=== PATIENT | female | born 1935 | race Caucasian/White ===

== ENCOUNTER 2022-05-10 22:42 | Emergency (ER) | payer MEDICARE, SELFPAY ==
[2022-05-10 22:45] VITALS: BP 152/75; PULSE 65; RESP 18; TEMP 36.8; O2SAT 98; BMI 23.7
--- NOTE | 2022-05-10 22:54 | CT_ITS ---
PROCEDURE INFORMATION: Exam: CT Head Without Contrast Exam date and time: 05/10/2022 11:17 PM Age: 87 years old Clinical indication: Injury or trauma; Fall; Blunt trauma (contusions or hematomas) TECHNIQUE: Imaging protocol: Computed tomography of the head without contrast. Radiation optimization: All CT scans at this facility use at least one of these dose optimization techniques: automated exposure control; mA and/or kV adjustment per patient size (includes targeted exams where dose is matched to clinical indication); or iterative reconstruction. COMPARISON: No relevant prior studies available. 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 No acute intracranial mass, hemorrhage or definite evidence of acute infarcts seen. Diffuse white matter hypodensity is compatible with chronic microvascular ischemic changes. Cerebral ventricles: There is significant generalized cerebral atrophy and associated ventriculomegaly. Paranasal sinuses: Visualized sinuses are unremarkable. No fluid levels. Mastoid air cells: Visualized mastoid air cells are well aerated. Bones/joints: Evidence of left facial fractures and blood in the left maxillary sinus partially visualized. Soft tissues: There is a small left frontal scalp hematoma. IMPRESSION: 1. No acute intracranial abnormality. Chronic findings of the brain as noted. 2. Left periorbital soft tissue swelling and partially visualized left facial fractures. Please see maxillofacial CT report from the same day for further details.
--- NOTE | 2022-05-10 22:54 | CT_ITS ---
PROCEDURE INFORMATION: Exam: CT Cervical Spine Without Contrast Exam date and time: 05/10/2022 11:17 PM Age: 87 years old Clinical indication: Injury or trauma; Fall; Blunt trauma TECHNIQUE: Imaging protocol: Computed tomography of the cervical spine without contrast. Radiation optimization: All CT scans at this facility use at least one of these dose optimization techniques: automated exposure control; mA and/or kV adjustment per patient size (includes targeted exams where dose is matched to clinical indication); or iterative reconstruction. COMPARISON: No relevant prior studies available. FINDINGS: Bones/joints: There is severe multilevel degenerative disc disease and facet arthropathy throughout the cervical spine. Facet arthropathy is most severe on the left at the C2-C3, C3-C4 and C4-C5 levels. Degenerative disc space narrowing and disc bulge and uncovertebral spurring are most severe at C4-C5 and C6-C7, producing at least mild spinal stenosis at these levels. Facet arthropathy produces grade 1 anterolisthesis of C3 and C7. No fracture or other acute abnormality evident. Lungs: Lung apices are normal. Soft tissues: Unremarkable. IMPRESSION: Severe degenerative changes of the cervical spine as described. No evidence of acute injury.
--- NOTE | 2022-05-10 22:54 | XR_ITS ---
PROCEDURE INFORMATION: Exam: XR Pelvis Exam date and time: 05/10/2022 11:40 PM Age: 87 years old Clinical indication: Injury or trauma; Fall; Blunt trauma (contusions or hematomas); Bilateral; Pelvic region TECHNIQUE: Imaging protocol: Radiologic exam of the pelvis. Views: 1 or 2 view. COMPARISON: No relevant prior studies available. FINDINGS: Bones/joints: Significant degenerative disc changes are partially visualized at the L3-L4 level. No other arthritic changes seen. No fracture or other acute abnormality evident. Soft tissues: Unremarkable. IMPRESSION: Degenerative changes partially visualized in the lumbar spine. No acute abnormality.
--- NOTE | 2022-05-10 22:54 | CT_ITS ---
PROCEDURE INFORMATION: Exam: CT Maxillofacial Without Contrast Exam date and time: 05/10/2022 11:20 PM Age: 87 years old Clinical indication: Injury or trauma; Fall; Blunt trauma (contusions or hematomas); Patient HX: Abrasion and swelling to left side of face/forehead TECHNIQUE: Imaging protocol: Computed tomography of the face without contrast. Radiation optimization: All CT scans at this facility use at least one of these dose optimization techniques: automated exposure control; mA and/or kV adjustment per patient size (includes targeted exams where dose is matched to clinical indication); or iterative reconstruction. COMPARISON: CT HEAD/BRAIN WO CON 05/10/2022 11:17 PM FINDINGS: Orbital cavities: There is herniation of a small amount of intraorbital fat through the left medial wall orbital fracture. Orbits are otherwise normal. Globes are unremarkable. Bones/joints: There is mild deformity of the left nasal bone with overlying soft tissue swelling suggesting acute fracture. There is a fracture of the medial wall of the left orbit. Linear lucency suggesting nondisplaced fracture noted in the left orbital floor and lateral wall of the left maxillary sinus. No other findings suspicious for fracture seen. Paranasal sinuses: High-density fluid compatible with blood noted in the left maxillary sinus. Mild fluid/mucosal thickening noted in the left ethmoid air cells. Soft tissues: Unremarkable. IMPRESSION: Multiple left facial bone fractures with associated paranasal sinus changes as described. No significant intraorbital abnormality evident.
--- NOTE | 2022-05-10 22:54 | XR_ITS ---
PROCEDURE INFORMATION: Exam: XR Chest Exam date and time: 05/10/2022 11:40 PM Age: 87 years old Clinical indication: Injury or trauma; Fall; Blunt trauma (contusions or hematomas) TECHNIQUE: Imaging protocol: Radiologic exam of the chest. Views: 1 view. COMPARISON: CT CERVICAL SPINE WO CON 05/10/2022 11:17 PM FINDINGS: Tubes, catheters and devices: Dual lead cardiac pacemaker is in place. Lungs: Dense opacity in the left lower chest suggests left lower lobe consolidative atelectasis and/or pleural fluid. More mild hazy opacity suggesting infiltrate or atelectasis noted in the right lower lung. Lung apices appear clear. Pleural spaces: Questionable left pleural effusion Heart/Mediastinum: Cardiac silhouette is moderately enlarged compatible with cardiomegaly and/or pericardial effusion. Bones/joints: Moderate degenerative changes noted throughout the thoracic spine. IMPRESSION: 1. Consolidative atelectasis and/or pleural fluid produces density in the left lower chest. Mild right lower lobe infiltrate versus atelectasis also noted. 2. Enlarged cardiac silhouette compatible with cardiomegaly and/or pericardial effusion
--- NOTE | 2022-05-10 22:54 | XR_ITS ---
PROCEDURE INFORMATION: Exam: XR Right Knee Exam date and time: 05/10/2022 11:40 PM Age: 87 years old Clinical indication: Injury or trauma; Fall; Blunt trauma; Knee; Right TECHNIQUE: Imaging protocol: Radiologic exam of the Right knee. Views: 4 or more views. COMPARISON: No relevant prior studies available. FINDINGS: Bones/joints: Normal. Soft tissues: Normal. IMPRESSION: No acute findings.
[2022-05-10 23:00] VITALS: BP 128/68; PULSE 70; O2SAT 95
--- NOTE | 2022-05-10 23:46 | PC.NURSE ---
Pt back in room from RAD
[2022-05-11 00:01] VITALS: BP 151/74; PULSE 71; O2SAT 93
--- NOTE | 2022-05-11 00:04 | [facility].EDFALL ---
Discharge Plan Disposition Chief Complaint: Fall Prescriptions Prescriptions: No Action lidocaine [Lidocaine Pain Relief] 4 % Adhesive Patch,Medicated 1 patch TOPICAL DAILY PRN (Reason: Pain) polyethylene glycol 3350 [Miralax] 17 gram Powder In Packet 17 g PO DAILY acetaminophen 500 mg Tablet 500 mg PO Q6H PRN (Reason: Pain) carvedilol [Coreg] 3.125 mg Tablet 3.125 mg PO BID Rx Instructions: must administer with a meal/food acetaminophen [Tylenol Arthritis Pain] 650 mg Tablet Extended Release 650 mg PO Q12H warfarin 3 mg Tablet 3 mg PO WEEKLY Rx Instructions: Friday warfarin 2 mg Tablet 2 mg PO DIRECTED Rx Instructions: once a day on Fri, Fri, Fri, , Fri, Sat. warfarin 2 mg Tablet 2 mg PO DAILY hydroxyzine HCl 25 mg Tablet 25 mg PO HS ondansetron 4 mg Tablet,Disintegrating 4 mg PO Q6H PRN (Reason: Nausea) lisinopril 2.5 mg Tablet 2.5 mg PO DAILY Cetaphil Daily Facial 15 SPF Lotion 1 applic TOPICAL DAILY Rx Instructions: apply at least 30 minutes before sun exposure escitalopram oxalate [Lexapro] 5 mg Tablet 5 mg PO DAILY quetiapine [Seroquel] 50 mg Tablet 50 mg PO DAILY diclofenac sodium [Voltaren Arthritis Pain] 1 % Gel 2 g TOPICAL QID Rx Instructions: apply to single elbow, wrist or hand; for hand includes palm/fingers/back of hand ropinirole 2 mg Tablet Extended Release 24 Hr 2 mg PO HS Referrals Follow up/Referrals: Chava Fernandez MD [Primary Care Provider] - See instructions Clinical Impressions Clinical Impression: Multiple facial bone fractures, Fall Instructions Patient Instructions: DI for Facial Fracture Discharge ED Provider: Anuj Gandara Fall HPI General Chief Complaint: Fall Stated Complaint: Fall Time Seen by Provider: 05/11/22 00:04 Mode of Arrival: EMS Source of Information: Patient, EMS and Medical Record Limitations: Altered Mental Status Description of Symptoms (Recalled from ER Triage Doc. by RN): Patient was a fall from shelter with known dementia. Patient was found sitting in the parking lot with an abrasion to her left cheek, bilateral knees, right palm, and a bloody nose. History of Present Illness HPI Narrative: pt fell at [facility] and unable to give specific hx sec to dementia - facial injury noted but no loc MD complaint: fall Onset (ago): hour(s) Fall from: walking Fall witnessed: no Place fall occurred: shelter/SNF Loss of consciousness: none Prolonged down time: no Symptoms prior to fall: none Context: tripped/slipped and history of frequent falls Location of injury: face Location of injury - extremities: Bilateral: knee Severity: moderate Associated symptoms (after fall): headache Related Data Home Medications Medication Instructions Recorded Confirmed acetaminophen 500 mg tablet 500 mg PO Q6H PRN Pain 05/10/22 05/10/22 acetaminophen 650 mg 650 mg PO Q12H Pain 05/10/22 05/10/22 tablet,extended release (Tylenol Arthritis Pain) carvedilol 3.125 mg tablet (Coreg) 3.125 mg PO BID htn 05/10/22 05/10/22 diclofenac sodium 1 % topical gel 2 g topical QID Arthritis 05/10/22 05/10/22 (Voltaren Arthritis Pain) escitalopram oxalate 5 mg tablet 5 mg PO DAILY Anxiety 05/10/22 05/10/22 (Lexapro) hydroxyzine HCl 25 mg tablet 25 mg PO HS htnn 05/10/22 05/10/22 lidocaine 4 % topical patch 1 patch topical DAILY PRN Pain 05/10/22 05/10/22 (Lidocaine Pain Relief) lisinopril 2.5 mg tablet 2.5 mg PO DAILY htn 05/10/22 05/10/22 ondansetron 4 mg disintegrating 4 mg PO Q6H PRN Nausea 05/10/22 05/10/22 tablet polyethylene glycol 3350 17 gram 17 g PO DAILY constipation 05/10/22 05/10/22 oral powder packet (Miralax) quetiapine 50 mg tablet (Seroquel) 50 mg PO DAILY sleep 05/10/22 05/10/22 ropinirole 2 mg tablet,extended 2 mg PO HS rls 05/10/22 05/10/22 release 24 hr sunscreen SPF 15 lotion (Cetaphil 1 appl
[2022-05-11 00:31] VITALS: BP 128/60; PULSE 70; O2SAT 92
[2022-05-11 01:01] VITALS: BP 106/50; PULSE 77; O2SAT 95
[2022-05-11 01:36] LABS: Basophils # 0.1 K/mm3 (0-0.2); Basophils % 0.7 % (0.1-2.0); Eosinophils # 0.2 K/mm3 (0.0-0.4); Hematocrit 42.4 % (37.0-47.0); Hemoglobin 13.7 g/dL (12.2-16.2); Lymphocytes % 25.2 % (10-50); Mean Corpuscular HGB Conc 32.4 g/dL (31.8-35.4); Mean Corpuscular Hemoglobin 29.3 pg (27.0-31.2); Mean Corpuscular Volume 90.6 fl (81-99); Mean Platelet Volume 7.1 fl (7.4-10.4); Monocytes # 0.5 K/mm3 (0.1-1.0); Monocytes % 5.9 % (1.7-9.3); Neutrophils # 5.2 K/mm3 (1.8-7.8); Neutrophils % 66.2 % (37.0-80.0); Platelet Count 206 K/mm3 (142-424); Red Blood Count 4.68 M/mm3 (4.20-5.40); Red Cell Distribution Width 13.7 % (11.5-17.5); White Blood Count 7.9 K/mm3 (4.8-10.8)
[2022-05-11 01:46] VITALS: BP 120/60; PULSE 78; RESP 18; TEMP 36.6; O2SAT 98
[2022-05-11 01:47] LABS: Blood Urea Nitrogen 17 mg/dl (7-17); Calcium 9.8 mg/dl (8.4-10.2); Carbon Dioxide 25 mmol/L (22.0-30.0); Chloride 105 mmol/L (98-107); Creatinine Clearance Estimated 40 mL/min (50-200); Estimated Glomerular Filt Rate 59 ml/min (>60); GFR (African American) 72 ML/MIN (>60); Glucose 146 mg/dl (74-100); Sodium 139 mmol/L (136-145)
[2022-05-11 01:59] LABS: INR 2.65 (0.9-1.1); Prothrombin Time 27.1 seconds (10.1-12.5)
--- NOTE | 2022-05-11 03:05 | PC.NURSE ---
Patients family member called to check in on patient and was upset that patient was discharged back to [facility] without her being notified of patients discharge. I informed the family member that the nursing staff called report to [facility] and typically patients are discharged back to the nursing facilities pretty quickly following ED discharge. I advised her as well that the patient was stable upon discharge and will follow up with her primary regarding fractures. Additionally, I informed the nurse who discharged the patient had a note on her desk to call her with an update but that I will inform the other nurse that it isnt necessary to call her regarding the patient as she has already been updated.
== END 2022-05-11 01:46 ==
PROVIDERS: Emergency Provider Emergency Medicine; PCP Family Medicine
DX: S00.81XA Abrasion of other part of head, initial encounter (principal); S80.211A Abrasion, right knee, initial encounter; S80.212A Abrasion, left knee, initial encounter; S60.511A Abrasion of right hand, initial encounter; Z86.16 Personal history of COVID-19; R04.0 Epistaxis; R51.9 Headache, unspecified; E83.42 Hypomagnesemia; R11.0 Nausea; R01.1 Cardiac murmur, unspecified; I77.4 Celiac artery compression syndrome; I48.20 Chronic atrial fibrillation, unspecified; M85.80 Other specified disorders of bone density and structure, unspecified site; M16.9 Osteoarthritis of hip, unspecified; M19.041 Primary osteoarthritis, right hand; K58.9 Irritable bowel syndrome, unspecified; K57.90 Diverticulosis of intestine, part unspecified, without perforation or abscess without bleeding; G25.81 Restless legs syndrome; G30.9 Alzheimer's disease, unspecified; F02.80 Dementia in other diseases classified elsewhere, unspecified severity, without behavioral disturbance, psychotic disturbance, mood disturbance, and anxiety; F41.1 Generalized anxiety disorder; Z79.01 Long term (current) use of anticoagulants; Z88.2 Allergy status to sulfonamides; Z88.8 Allergy status to other drugs, medicaments and biological substances; Z85.53 Personal history of malignant neoplasm of renal pelvis; Z95.0 Presence of cardiac pacemaker; W01.0XXA Fall on same level from slipping, tripping and stumbling without subsequent striking against object, initial encounter
CPT/HCPCS: 70450; 70486; 71045; 72125; 72170; 73564; 80048; 85025; 85610; 99285